=== PATIENT | female | born 1995 | race Two or more races ===

== ENCOUNTER 2025-07-15 11:59 | Emergency (ER) | payer MEDICAID, SELFPAY ==
[2025-07-15 12:42] VITALS: BP 146/83; PULSE 99; RESP 16; TEMP 37.4; O2SAT 99; BMI 31.6
--- NOTE | 2025-07-15 13:14 | EDNOTE_ITS ---
ED Female Urogenital RME/HPI General Chief complaint: Urogenital-Female Stated complaint: BURNING W/ URINATION, LOWER BACK PAIN, PREG 8WKS Time Seen by Provider: 07/15/25 13:15 Arrival date/time: 07/15/25 11:59 RME / HPI RME / HPI Narrative: See [facility] for HPI document Related Data Home Medications ?Medication ?Instructions ?Recorded ?Confirmed vit 122-ferrous fumarate 1 tab PO QDAY 05/31/18 27 mg iron-folic acid 800 mcg tablet ( Multi) Previous Rx's ?Medication ?Instructions ?Recorded cefdinir 300 mg capsule 300 mg PO BID 5 days #10 cap s 07/15/25 phenazopyridine 200 mg tablet 200 mg PO TID PRN pain # 12 tabs 07/15/25 (Pyridium) Allergies Allergy/AdvReac Type Severity Reaction Status Date / Time No Known Allergies Allergy Verified 07/15/25 12:02 Review of Systems Review of Systems Systems Reviewed: All systems reviewed, normal except as documented ED Exam Narrative Physical exam: See [facility] for physical exam documentation. Course Quality Measures none Orders Category Date Time Status UA, C/S IF [Urinalysis, C/S if Indicated] Stat Lab 07/15/25 13:15 Completed Vital Signs Vital signs: Vital Signs Temperature 99.4 F 07/15/25 12:42 Pulse Rate 99 07/15/25 12:42 Respiratory Rate 16 07/15/25 12:42 Blood Pressure 146/83 H 07/15/25 12:42 Pulse Oximetry (%) 99 07/15/25 12:42 Oxygen Delivery Method Room Air 07/15/25 12:42 Urogenital - Female MDM Narrative [facility] Narrative:: This section includes all my notes and documentations, including HPI, PE, and ED course. Herb Patricio MD HPI: 30-year-old female (~8 weeks) here with dysuria and urinary frequency and urgency. Concerned about UTI due to history. No pelvic pain or cramping. No vaginal bleeding or spotting. No other complaints. ROS: All negative except as documented in HPI. Physical Exam: General: Alert and oriented. No acute distress when remaining still. Eyes: Conjunctivae and lids clear. ENT: No nasal congestion. Neck: Supple. Lungs: No respiratory distress. Abdomen: Soft and nontender. Normal bowel sounds. No distension. No rebound or guarding. Back: No CVA tenderness. Skin: Warm and dry. Neuro: Alert and oriented X 3. I reviewed all diagnostic test results: UA normal. At this point, diagnoses include: Dysuria with urinary frequency and urgency Treatment here included: None Patient requested ABX despite normal UA. Prescribed short course of ABX and recommended outpatient follow-up. Based on my best medical judgment, made decision no further evaluation or treatment indicated at this time. Patient understands and agrees to the discharge instructions customized and printed, see below. Discharge instructions from Dr. Patricio: 1. After evaluation, your urine is clean without signs of infection. 2. But since you want to take antibiotics, take cefdinir as prescribed. And Pyridium for pain. 3. For good hydration, increase oral fluid and maintain clear urine. If dark or yellow, increase oral fluid. 4. See a private doctor on 07/20/2025 for recheck and further care. 5. Seek immediate medical care with worsening, fever, or with any concerns. Herb Particio MD Patient data External records reviewed:: [facility] previous records Clinical information provided by:: patient Social determinants that could affect healthcare access:: none Patient has the following chronic illnesses:: None How is presenting disease/condition affected by chronic disease/condition?: no chronic disease Evaluation data The following diagnostics were reviewed and interpreted by me:: lab results Lab and/or radiology exams considered but not ordered:: None Interpretation Summary: Normal UA Medications / Prescriptions Medications or Prescriptions considered but not ordered:: None Medication administrations:: None Consultations Consultation(s) initiated? (list below): No Diagnosis Urogenital Female Differential Diagnosis: urinary tract infection Most likely diagnosis given after review of the tests above:: Dysuria with urinary frequency and urgency with normal UA Admission Indicated Admission indicated?: not indicated Explain why admission is indicated or not indicated:: With no condition needing emergent intervention, there was no indication for admission. Admission Request Was there a request for admission?: No Disposition Plan Disposition Plan: Discharge Discharge Attestation Discharge Attestation: The patient and all family members were given an opportunity to ask questions and understood the discharge instructions. Discharge instructions specifically effects, indications for sooner follow up or return to the emergency department, and the expected course of current diagnosis. Patient condition: Stable Discharge Plan Plan Patient Disposition: HOME (Self Care) Prescriptions/Referrals Prescriptions/Med Rec: New phenazopyridine [Pyridium] 200 mg tablet 200 mg PO TID PRN (Reason: pain) Qty: 12 0RF cefdinir 300 mg capsule 300 mg PO BID 5 Days Qty: 10 0RF No Action Multi 27-800 mg-mcg Tablet 1 tab PO QDAY Problem List Clinical Impression: Dysuria Patient/Caregiver Discharge Instructions Discharge Activity: activity as tolerated Education Materials: ED Dysuria, Uncertain Cause (Adult) Additional Instructions: Discharge instructions from Dr. Patricio: 1. After evaluation, your urine is clean without signs of infection. 2. But since you want to take antibiotics, take cefdinir as prescribed. And Pyridium for pain. 3. For good hydration, increase oral fluid and maintain clear urine. If dark or yellow, increase oral fluid. 4. See a private doctor on 07/20/2025 for recheck and further care. 5. Seek immediate medical care with worsening, fever, or with any concerns. Print Language: Beninese Stand Alone Forms: [facility] Award Info., Patient Portal Info Letter
[2025-07-15 13:29] LABS: Collection Type, Urine Clean Catch
[2025-07-15 13:41] LABS: Bilirubin,Urine Negative (Negative); Blood,Urine Negative (Negative); Clarity,Urine Clear (Clear/Hazy); Color,Urine Colorless (Lt Yel-Yel); Culture Indicated,Urine Not Indicated; Glucose, Urine Negative (Negative); Ketones,Urine Negative (Negative); Nitrite,Urine Negative (Negative); PH,Urine 6.5 (5.0-7.0); Protein,Urine Negative (Neg - Trace); RBC,Urine 1 /hpf (0-3); Specific Gravity,Urine 1.002 (1.001-1.035); Squamous Epithelial Cell,Urine < 1 /hpf (0-5); Urobilinogen,Urine Negative mg/dL (0.0-1.0); WBC,Urine 1 /hpf (0-5)
[2025-07-15 13:49] LABS: Leukocyte Esterase,Urine Trace (Negative)
== END 2025-07-15 14:37 | disposition home or self-care (01) ==
LOC: SERX 14:28
PROVIDERS: Emergency Provider Emergency Medicine
DX: O99.891 Other specified diseases and conditions complicating pregnancy (principal); R30.0 Dysuria; Z3A.08 8 weeks gestation of pregnancy
CPT/HCPCS: 81001; 99282